=== PATIENT | male | born 1950 | race Two or more races ===

== ENCOUNTER 2019-11-27 16:24 | Inpatient (IN) | payer MEDICARE ==
[~2019-11-27] VITALS: Ht 177.8 cm; Wt 81.3 kg
[2019-11-27] MEDS ORDERED: ACCU-CHEK COMFORT CURVE STRIP VI ONE (17:30)
[2019-11-27 17:49] LABS: Basophils # (auto) 0.1 10 ^3/uL (0-0.2); Basophils % (auto) 1.2 % (0.0-2.0); Eosinophils # (auto) 0.2 10 ^3/uL (0-0.8); Eosinophils % (auto) 1.6 % (0.0-7.0); Hematocrit 41.8 % (41.0-53.0); Hemoglobin 13.7 g/dL (13.5-17.5); Lymphocytes # (auto) 2.7 10 ^3/uL (0.4-5.4); Lymphocytes % (auto) 23.1 % (10.0-50.0); Mean Corpuscular Hemoglobin 30.4 pg (28.0-32.0); Mean Corpuscular Hgb Conc. 32.8 g/dL (32.0-36.0); Mean Corpuscular Volume 92.8 fL (80.0-100.0); Monocytes # (auto) 0.8 10 ^3/uL (0-1.3); Neutrophils # (auto) 7.8 10 ^3/uL (1.6-8.6); Neutrophils % (auto) 67.1 % (37.0-80.0); Nucleated Red Blood Cells % 0.1 %; Platelet Count (auto) 300 10^3/uL (140-450); Red Blood Cells 4.51 10^6/uL (4.5-5.90); Red Cell Distribution Width 12.9 % (11.8-14.3); White Blood Cell 11.6 10^3/uL (4.4-10.8)
[2019-11-27 18:05] LABS: Potassium 3.7 mmol/L (3.5-5.1)
[2019-11-27 18:12] LABS: Albumin 2.8 g/dL (3.4-5.0); BUN/Creatinine Ratio 17.5; Bilirubin, Total 0.7 mg/dL (0.2-1.0); Calcium 8.6 mg/dL (8.5-10.1); Total Protein 7.2 g/dL (6.4-8.2)
[2019-11-27] MEDS ORDERED: cloNIDine HCL 0.1 MG TAB PO ONE (18:45)
[2019-11-27 19:11] LABS: Urine Bacteria NONE SEEN /hpf (None Seen); Urine Blood 1+ /uL (Negative); Urine Mucus FEW (None Seen); Urine Specific Gravity 1.015 (1.001-1.035); Urine WBC 2 /hpf (0 - 3)
[2019-11-27 19:25] LABS: Amphetamine Screen, Urine NEGATIVE (NEGATIVE); Barbiturate Scree,Urine NEGATIVE (NEGATIVE); Benzodiazephine Screen, Urine NEGATIVE (NEGATIVE); Cannabinoid Screen, Urine NEGATIVE (NEGATIVE); Cocaine Screen, Urine NEGATIVE (NEGATIVE); Opiate Scree,Urine NEGATIVE (NEGATIVE); Phencyclidine Screen, Urine NEGATIVE (NEGATIVE)
[2019-11-27] MEDS ORDERED: MORPHINE SULF INJ 2 MG/ML SYRINGE 1ML IV PRN ×2 (19:45)
[2019-11-27] MEDS ORDERED: ISOSORBIDE MONONITRATE ER 60 MG TAB PO ONE (19:45)
[2019-11-27] MEDS ORDERED: DEXTROSE (50%) 50ML SYRG IV PRN (19:45)
[2019-11-27] MEDS ORDERED: ONDANSETRON HCL 4 MG/2 ML VIAL IV PRN (19:45)
[2019-11-27] MEDS ORDERED: ACETAMINOPHEN 500 MG TAB PO PRN (19:45)
[2019-11-27] MEDS ORDERED: HYDROcodone-ACET 5/325MG TAB PO PRN (19:45)
[2019-11-27] MEDS ORDERED: NITROGLYCERIN 0.4 MG SL TAB SL PRN (19:45)
[2019-11-27] MEDS ORDERED: amLODIPine BESYLATE 5 MG TAB PO ONE (19:45)
[2019-11-27 22:00] VITALS: BP 153/83
--- NOTE | 2019-11-27 22:00 | NUR ---
Telemetry admit from ER RHONDA BAXTER admitted to Telemetry unit. Patient oriented to Umu CareyRN primary RN, unit, room, bed, and unit policies regarding patient care and visiting hours. Patient now on continuous telemetry monitoring, tele box #82 and telemetry reading on arrival to unit is SINUS RYANN IN THE 40'S. AAOX4, ON ROOM AIR AND AMBULATORY. Patient weighed by bed scale and encouraged to call if they need something. All questions and concerns addressed, patient verbalized understanding. BED IN LOWEST LOCKED POSITION, SIDE RAILS UP X2, CALL LIGHT WITHIN REACH. WILL CONTINUE TO MONITOR EVERY HOUR AND NEEDED.
[2019-11-27 22:15] VITALS: BP 153/83
[2019-11-27] MEDS: ACCU-CHEK COMFORT CURVE STRIP VI SCH (22:35)
[2019-11-27] MEDS: InsuLIN REG 1unit/0.01ml Soln (100units/ml) SC SCH (22:36)
[2019-11-28] MEDS ORDERED: ATOR80TA PO (00:09)
[2019-11-28] MEDS ORDERED: LOSA50TA26 PO (00:09)
[2019-11-28] MEDS ORDERED: INSDRIP IV (00:09)
[2019-11-28] MEDS ORDERED: ATEN50TA PO (00:09)
[2019-11-28] MEDS ORDERED: ASPI-404 PO (00:09)
[2019-11-28 05:00] VITALS: BP 154/76
[2019-11-28] MEDS: ACCU-CHEK COMFORT CURVE STRIP VI SCH ×4 (06:44→22:00)
[2019-11-28] MEDS: InsuLIN REG 1unit/0.01ml Soln (100units/ml) SC SCH ×4 (06:45→22:29)
[2019-11-28 08:41] LABS: Potassium 3.7 mmol/L (3.5-5.1)
[2019-11-28 09:00] LABS: Albumin 2.4 g/dL (3.4-5.0); BUN/Creatinine Ratio 17.1; Calcium 8.2 mg/dL (8.5-10.1)
[2019-11-28 09:03] LABS: Bilirubin, Total 0.6 mg/dL (0.2-1.0); Total Protein 5.7 g/dL (6.4-8.2)
[2019-11-28] MEDS: FAMOTIDINE 20 MG TAB PO SCH (09:09)
[2019-11-28] MEDS: hydrALAZINE HCL 20 MG/ML VL IV PRN (09:09)
[2019-11-28 09:10] VITALS: BP 136/86
[2019-11-28] MEDS: ISOSORBIDE MONONITRATE ER 60 MG TAB PO SCH (09:10)
[2019-11-28] MEDS: amLODIPine BESYLATE 5 MG TAB PO SCH ×2 (10:00→11:14)
[2019-11-28 10:32] LABS: Basophils # (auto) 0.1 10 ^3/uL (0-0.2); Basophils % (auto) 1.3 % (0.0-2.0); Eosinophils # (auto) 0.2 10 ^3/uL (0-0.8); Hematocrit 35.8 % (41.0-53.0); Hemoglobin 12.2 g/dL (13.5-17.5); Lymphocytes # (auto) 1.8 10 ^3/uL (0.4-5.4); Lymphocytes % (auto) 19.5 % (10.0-50.0); Mean Corpuscular Hemoglobin 31.3 pg (28.0-32.0); Mean Corpuscular Volume 92.2 fL (80.0-100.0); Monocytes # (auto) 0.6 10 ^3/uL (0-1.3); Monocytes % (auto) 6.9 % (0.0-12.0); Neutrophils # (auto) 6.6 10 ^3/uL (1.6-8.6); Neutrophils % (auto) 70.3 % (37.0-80.0); Nucleated Red Blood Cells % 0.1 %; Platelet Count (auto) 261 10^3/uL (140-450); Red Blood Cells 3.89 10^6/uL (4.5-5.90); Red Cell Distribution Width 13.1 % (11.8-14.3); White Blood Cell 9.4 10^3/uL (4.4-10.8)
[2019-11-28 10:39] VITALS: BP 149/87
[2019-11-28 13:00] VITALS: BP 168/85
[2019-11-28] MEDS ORDERED: LOSARTAN POTASSIUM 25 MG TAB PO ONE (13:30)
[2019-11-28] MEDS ORDERED: LORazepam 2MG/ML-1ML VIAL IV PRN (13:30)
[2019-11-28] MEDS ORDERED: ASPirin-EC 81 mg tab PO ONE (13:45)
[2019-11-28 17:00] VITALS: BP 153/75
[2019-11-28 22:09] VITALS: BP 155/88
[2019-11-28] MEDS: ATORVASTATIN 20 MG TAB PO SCH (22:26)
[2019-11-28] MEDS: INSULIN LANTUS (GLARGINE) 1 /0.01ml (100units/ml) SC SCH (22:30)
[2019-11-29] MEDS: hydrALAZINE HCL 20 MG/ML VL IV PRN ×2 (05:24→22:47)
[2019-11-29 05:30] VITALS: BP 166/82
[2019-11-29] MEDS: InsuLIN REG 1unit/0.01ml Soln (100units/ml) SC SCH ×5 (06:34→22:56)
[2019-11-29] MEDS: ACCU-CHEK COMFORT CURVE STRIP VI SCH ×6 (06:34→22:35)
[2019-11-29 06:37] LABS: Potassium 3.7 mmol/L (3.5-5.1)
[2019-11-29 06:47] LABS: BUN/Creatinine Ratio 18.5; Calcium 8.4 mg/dL (8.5-10.1)
--- NOTE | 2019-11-29 07:33 | NUR ---
Opening Shift Note Assumed care of patient from noc shift rn, awake and alert. No S/S of distress/SOB, denies pain at this time. Plan of care discussed, advised to call for assist PRN, will continue to monitor for changes Q1hr and PRN.
[2019-11-29 09:00] VITALS: BP 145/73
[2019-11-29] MEDS: ISOSORBIDE MONONITRATE ER 60 MG TAB PO SCH (09:27)
[2019-11-29] MEDS: FAMOTIDINE 20 MG TAB PO SCH (09:28)
[2019-11-29] MEDS: ASPirin-EC 81 mg tab PO SCH (09:28)
[2019-11-29] MEDS: amLODIPine BESYLATE 5 MG TAB PO SCH (09:29)
[2019-11-29] MEDS ORDERED: LOSARTAN POTASSIUM 25 MG TAB PO SCH (10:00)
--- NOTE | 2019-11-29 11:50 | NUR ---
Called and informed pharmacist Mireya Waldrop that Accucheck/Insulin for 1130 schedule is not showing in eMar.
[2019-11-29 13:00] VITALS: BP 140/76
[2019-11-29 16:24] LABS: Phosphorus 3.8 mg/dL (2.5-4.90)
[2019-11-29 17:10] VITALS: BP 133/74
[2019-11-29] MEDS: SODIUM BICARBONATE 650 MG TAB PO SCH ×2 (18:24→22:47)
[2019-11-29 22:00] VITALS: BP 155/80
[2019-11-29] MEDS: ATORVASTATIN 20 MG TAB PO SCH (22:47)
[2019-11-29] MEDS: INSULIN LANTUS (GLARGINE) 1 /0.01ml (100units/ml) SC SCH (22:56)
[2019-11-30 05:57] VITALS: BP 142/73
[2019-11-30] MEDS: SODIUM BICARBONATE 650 MG TAB PO SCH ×4 (06:01→22:15)
[2019-11-30] MEDS: InsuLIN REG 1unit/0.01ml Soln (100units/ml) SC SCH ×4 (07:00→22:20)
[2019-11-30] MEDS: ACCU-CHEK COMFORT CURVE STRIP VI SCH ×4 (07:00→22:20)
--- NOTE | 2019-11-30 07:30 | NUR ---
Opening Shift Note Assuming care of patient at this time. Patient is awake and alert. Patient denies pain. Instructed patient on the plan of care for today and to call for assistance as needed. Bed is locked and lowered with side rails up x2. Call light within reach. Will continue to round hourly and as needed.
[2019-11-30 07:59] LABS: Calcium 7.9 mg/dL (8.5-10.1); Potassium 3.7 mmol/L (3.5-5.1)
[2019-11-30 09:10] VITALS: BP 144/78
[2019-11-30] MEDS: FAMOTIDINE 20 MG TAB PO SCH (09:53)
[2019-11-30] MEDS: amLODIPine BESYLATE 5 MG TAB PO SCH (09:54)
[2019-11-30] MEDS: ISOSORBIDE MONONITRATE ER 60 MG TAB PO SCH (09:54)
[2019-11-30] MEDS: ASPirin-EC 81 mg tab PO SCH (09:54)
[2019-11-30] MEDS ORDERED: LOSARTAN POTASSIUM 25 MG TAB PO SCH (10:00)
[2019-11-30 11:24] LABS: Urine Bacteria NONE SEEN /hpf (None Seen); Urine Blood TRACE /uL (Negative); Urine Hyaline Cast FEW /lpf (0 - 2); Urine Specific Gravity 1.015 (1.001-1.035); Urine WBC 2 /hpf (0 - 3)
[2019-11-30 11:54] LABS: Protein, Urine 489.5 mg/dL (0.0-11.9)
[2019-11-30] MEDS ORDERED: CHOLECALCIFEROL (VITD3) 1,000IU=25mCg TAB PO ONE (12:45)
[2019-11-30 13:00] VITALS: BP 156/79
[2019-11-30] MEDS: hydrALAZINE HCL 10 MG TAB PO SCH ×2 (14:25→22:16)
[2019-11-30 17:09] VITALS: BP 142/76
--- NOTE | 2019-11-30 18:49 | NUR ---
Closing Shift Note Patient resting in bed. No distress noted. Will endorse care to the coffee roaster RN.
[2019-11-30 20:00] VITALS: BP 149/77
[2019-11-30 22:00] VITALS: BP 149/77
[2019-11-30] MEDS: ATORVASTATIN 20 MG TAB PO SCH (22:16)
[2019-11-30] MEDS: INSULIN LANTUS (GLARGINE) 1 /0.01ml (100units/ml) SC SCH (22:20)
[2019-12-01 05:00] VITALS: BP 156/78
[2019-12-01 05:31] LABS: Basophils # (auto) 0.1 10 ^3/uL (0-0.2); Basophils % (auto) 0.7 % (0.0-2.0); Eosinophils # (auto) 0.3 10 ^3/uL (0-0.8); Eosinophils % (auto) 2.3 % (0.0-7.0); Hematocrit 34.6 % (41.0-53.0); Hemoglobin 11.6 g/dL (13.5-17.5); Lymphocytes # (auto) 2.8 10 ^3/uL (0.4-5.4); Lymphocytes % (auto) 25.2 % (10.0-50.0); Mean Corpuscular Hemoglobin 30.8 pg (28.0-32.0); Mean Corpuscular Hgb Conc. 33.5 g/dL (32.0-36.0); Mean Corpuscular Volume 92.2 fL (80.0-100.0); Monocytes % (auto) 8.8 % (0.0-12.0); Neutrophils # (auto) 6.9 10 ^3/uL (1.6-8.6); Nucleated Red Blood Cells % 0.1 %; Platelet Count (auto) 280 10^3/uL (140-450); Red Blood Cells 3.76 10^6/uL (4.5-5.90); Red Cell Distribution Width 13.1 % (11.8-14.3)
[2019-12-01 05:54] LABS: BUN/Creatinine Ratio 18.7; Calcium 7.9 mg/dL (8.5-10.1)
[2019-12-01] MEDS: hydrALAZINE HCL 10 MG TAB PO SCH ×3 (06:08→21:46)
[2019-12-01] MEDS: SODIUM BICARBONATE 650 MG TAB PO SCH ×4 (06:08→21:49)
[2019-12-01] MEDS: ACCU-CHEK COMFORT CURVE STRIP VI SCH ×4 (06:09→21:44)
[2019-12-01] MEDS: InsuLIN REG 1unit/0.01ml Soln (100units/ml) SC SCH ×4 (06:09→21:45)
[2019-12-01 09:00] VITALS: BP 150/76
[2019-12-01] MEDS: ASPirin-EC 81 mg tab PO SCH (09:36)
[2019-12-01] MEDS: CHOLECALCIFEROL (VITD3) 1,000IU=25mCg TAB PO SCH (09:37)
[2019-12-01] MEDS: amLODIPine BESYLATE 5 MG TAB PO SCH (09:38)
[2019-12-01] MEDS: FAMOTIDINE 20 MG TAB PO SCH (09:38)
[2019-12-01] MEDS: ISOSORBIDE MONONITRATE ER 60 MG TAB PO SCH (09:39)
[2019-12-01 13:00] VITALS: BP 157/79
[2019-12-01 16:39] VITALS: BP 140/79
[2019-12-01] MEDS: MECLIZINE HCL 25 MG TAB PO SCH (17:34)
--- NOTE | 2019-12-01 19:22 | NUR ---
Closing Shift Note Patient resting in bed. No distress noted. Report given. Will endorse care to the shift production associate RN.
--- NOTE | 2019-12-01 19:37 | NUR ---
Opening Shift Note Assumed care of patient, awake and alert. No S/S of distress/SOB or pain. Patient's walker at the bedside. Safety measures in place bed in lowest position, side rails x2 up, and call light within reach. Instructed on POC and to call for assist PRN, will continue to monitor for changes Q1hr and PRN.
--- NOTE | 2019-12-01 20:00 | NUR ---
Educated patient that IV should be discontinued since 72 hours has passed since insertion. Educated patient on risk and benefits. Patient verbalized understanding. Patient refused new IV; patient stated "It's still working, I don't want a new one". Will continue to monitor.
[2019-12-01] MEDS: INSULIN LANTUS (GLARGINE) 1 /0.01ml (100units/ml) SC SCH (21:45)
[2019-12-01] MEDS: ATORVASTATIN 20 MG TAB PO SCH (21:46)
[2019-12-01 22:00] VITALS: BP 137/67
[2019-12-02 05:19] VITALS: BP 159/83
[2019-12-02 05:44] LABS: Basophils # (auto) 0.1 10 ^3/uL (0-0.2); Eosinophils # (auto) 0.3 10 ^3/uL (0-0.8); Eosinophils % (auto) 2.5 % (0.0-7.0); Hematocrit 33.8 % (41.0-53.0); Hemoglobin 11.6 g/dL (13.5-17.5); Lymphocytes # (auto) 2.7 10 ^3/uL (0.4-5.4); Lymphocytes % (auto) 24.3 % (10.0-50.0); Mean Corpuscular Hemoglobin 31.7 pg (28.0-32.0); Mean Corpuscular Hgb Conc. 34.3 g/dL (32.0-36.0); Mean Corpuscular Volume 92.3 fL (80.0-100.0); Monocytes # (auto) 0.9 10 ^3/uL (0-1.3); Monocytes % (auto) 8.4 % (0.0-12.0); Neutrophils % (auto) 63.8 % (37.0-80.0); Nucleated Red Blood Cells % 0.1 %; Platelet Count (auto) 260 10^3/uL (140-450); Red Blood Cells 3.66 10^6/uL (4.5-5.90)
[2019-12-02] MEDS: hydrALAZINE HCL 10 MG TAB PO SCH ×3 (05:44→22:00)
[2019-12-02] MEDS: SODIUM BICARBONATE 650 MG TAB PO SCH ×2 (05:44→11:42)
[2019-12-02 06:03] LABS: BUN/Creatinine Ratio 17.5; Calcium 8.1 mg/dL (8.5-10.1); Potassium 4.1 mmol/L (3.5-5.1)
--- NOTE | 2019-12-02 06:23 | NUR ---
Patient refusing accucheck. Educated patient on risk and benefits. Patient verbalized understanding. Patient continued to refuse. Will notify radha RN.
[2019-12-02] MEDS: InsuLIN REG 1unit/0.01ml Soln (100units/ml) SC SCH ×4 (06:26→22:15)
[2019-12-02] MEDS: ACCU-CHEK COMFORT CURVE STRIP VI SCH ×4 (06:26→22:00)
--- NOTE | 2019-12-02 08:00 | NUR ---
Opening Shift Note Assumed care of patient, awake, alert and oriented. No S/S of distress/SOB or pain. Instructed on POC and to call for assist PRN. Bed locked, in lowest position, call light within reach. Will continue to monitor for changes Q1hr and PRN.
[2019-12-02] MEDS: MECLIZINE HCL 25 MG TAB PO SCH ×2 (08:19→11:43)
[2019-12-02 09:00] VITALS: BP 165/81
[2019-12-02] MEDS: ASPirin-EC 81 mg tab PO SCH (09:52)
[2019-12-02] MEDS: FAMOTIDINE 20 MG TAB PO SCH (09:52)
[2019-12-02] MEDS: ISOSORBIDE MONONITRATE ER 60 MG TAB PO SCH (09:53)
[2019-12-02] MEDS: CHOLECALCIFEROL (VITD3) 1,000IU=25mCg TAB PO SCH (09:54)
[2019-12-02] MEDS: amLODIPine BESYLATE 5 MG TAB PO SCH (09:54)
[2019-12-02] MEDS: hydrALAZINE HCL 20 MG/ML VL IV PRN (11:42)
[2019-12-02 13:00] VITALS: BP 143/72
[2019-12-02] MEDS ORDERED: MECLIZINE HCL 25 MG TAB PO PRN (13:15)
[2019-12-02 17:00] VITALS: BP 113/71
--- NOTE | 2019-12-02 19:03 | NUR ---
REPORT GIVEN TO NIGHT NURSE.
--- NOTE | 2019-12-02 19:25 | NUR ---
Opening Shift Note Assumed care of patient, awake and alert. No S/S of distress/SOB or pain. Safety measures in place bed in lowest position, side rails x2 up, and call light within reach. Instructed on POC and to call for assist PRN, will continue to monitor for changes Q1hr and PRN.
[2019-12-02 22:00] VITALS: BP 154/77
[2019-12-02] MEDS ORDERED: ATORVASTATIN 20 MG TAB PO SCH (22:00)
[2019-12-02] MEDS ORDERED: SODIUM BICARBONATE 650 MG TAB PO SCH (22:00)
[2019-12-02] MEDS: INSULIN LANTUS (GLARGINE) 1 /0.01ml (100units/ml) SC SCH (22:06)
[2019-12-03 03:11] LABS: Immunoglobulin G, Serum 670 mg/dL (603-1613)
[2019-12-03 05:00] VITALS: BP 151/77
[2019-12-03] MEDS: hydrALAZINE HCL 10 MG TAB PO SCH ×2 (06:13→14:00)
[2019-12-03] MEDS: InsuLIN REG 1unit/0.01ml Soln (100units/ml) SC SCH ×2 (06:15→11:30)
[2019-12-03] MEDS: ACCU-CHEK COMFORT CURVE STRIP VI SCH ×2 (06:15→12:19)
--- NOTE | 2019-12-03 07:00 | NUR ---
Opening Shift Note Received report on the patient. Awake lying in bed. Patient shows no signs of distress at this time. Discussed the plan of care with the patient. Bed in lowest position, side rails up x2, and the call light is within reach. Will continue to monitor.
[2019-12-03 08:00] VITALS: BP 151/77
[2019-12-03 09:00] VITALS: BP 146/79
[2019-12-03] MEDS: ASPirin-EC 81 mg tab PO SCH (09:59)
[2019-12-03] MEDS: ISOSORBIDE MONONITRATE ER 60 MG TAB PO SCH (09:59)
[2019-12-03] MEDS: CHOLECALCIFEROL (VITD3) 1,000IU=25mCg TAB PO SCH (10:00)
[2019-12-03] MEDS: FAMOTIDINE 20 MG TAB PO SCH (10:00)
[2019-12-03] MEDS ORDERED: SODIUM BICARBONATE 650 MG TAB PO SCH (10:00)
[2019-12-03] MEDS: amLODIPine BESYLATE 5 MG TAB PO SCH (10:00)
[2019-12-03 10:01] LABS: Hepatitis B Surface Antigen Negative (Negative)
[2019-12-03 10:11] LABS: Hepatitis B Core IgM Negative
[2019-12-03 11:35] LABS: BUN/Creatinine Ratio 17.6; Calcium 8.3 mg/dL (8.5-10.1); Potassium 4.4 mmol/L (3.5-5.1)
[2019-12-03 13:00] VITALS: BP 141/73
[2019-12-03 13:25] VITALS: BP 141/73
--- NOTE | 2019-12-03 15:24 | NUR ---
Discharge instructions given as ordered. Encourage to follow up with PMD as instructed. All questions and concerns addressed. Patient verbalized understanding. Medication reconciliation form completed and copy given to patient. Home medications held in Pharmacy returned to patient. IV removed with catheter intact, pressure dressing applied. Telemetry unit returned to ICU. Patient taken to vehicle via wheelchair with all personal belongings, accompanied by staff and family member. No distress noted at time of departure.
== END 2019-12-03 15:22 | disposition home or self-care (01) | DRG 304 ==
LOC: ER 16:24 → TELE 16:25 → TELE-WESTW 21:55
PROVIDERS: ADMIT Nurse Practitioner Acute Care; ATTEND Internal Medicine
DX: I16.1 Hypertensive emergency (principal); N17.0 Acute kidney failure with tubular necrosis; E87.2 Acidosis; R55 Syncope and collapse; R20.0 Anesthesia of skin; E11.65 Type 2 diabetes mellitus with hyperglycemia; N18.3 Chronic kidney disease, stage 3 (moderate); N28.1 Cyst of kidney, acquired; R29.6 Repeated falls; R81 Glycosuria; R00.1 Bradycardia, unspecified; E11.22 Type 2 diabetes mellitus with diabetic chronic kidney disease; E78.5 Hyperlipidemia, unspecified; I12.9 Hypertensive chronic kidney disease with stage 1 through stage 4 chronic kidney disease, or unspecified chronic kidney disease; Z79.84 Long term (current) use of oral hypoglycemic drugs; Z79.899 Other long term (current) drug therapy; Z83.3 Family history of diabetes mellitus; Z91.19 Patient's noncompliance with other medical treatment and regimen; Z91.14 Patient's other noncompliance with medication regimen; Z91.81 History of falling
CPT/HCPCS: 36415; 70450; 71045; 76775; 80048; 80053; 80061; 80307; 81001; 82043; 82306; 82570; 82784; 82962; 83036; 83516; 83735; 83880; 83883; 83970; 84100; 84155; 84156; 84165; 84166; 84300; 84443; 84484; 85025; 85652; 86225; 86235; 86334; 86335; 86703; 86705; 86803; 87081; 87340; 93005; 93306; 93886; 97116; 97163; 97530; G0378; J1815

== ENCOUNTER → 2019-12-20 | Outpatient (CLI) | payer MEDICARE ==
[~2019-12-20] MED LIST: ASPI-404 PO; ATEN50TA PO; ATOR80TA PO; INSDRIP IV; LOSA50TA26 PO
[2019-12-20 11:22] LABS: BUN/Creatinine Ratio 12.2; Calcium 8.3 mg/dL (8.5-10.1); Magnesium 2.5 mg/dL (1.6-2.6); Phosphorus 3.4 mg/dL (2.5-4.90); Potassium 3.4 mmol/L (3.5-5.1)
== END | disposition home or self-care (01) ==
LOC: LAB 10:44
PROVIDERS: ATTEND Internal Medicine Nephrology
DX: I12.9 Hypertensive chronic kidney disease with stage 1 through stage 4 chronic kidney disease, or unspecified chronic kidney disease (principal); N18.4 Chronic kidney disease, stage 4 (severe)
CPT/HCPCS: 36415; 80048; 83735; 84100

== ENCOUNTER 2020-01-09 12:18 | Inpatient (IN) | payer MEDICARE ==
[~2020-01-09] VITALS: Ht 177.8 cm; Wt 72.5 kg
[2020-01-09] MEDS ORDERED: SODIUM CHLORIDE 0.9% 1,000 ML IV ONE (12:40)
[2020-01-09 13:09] LABS: Basophils # (auto) 0.1 10 ^3/uL (0-0.2); Basophils % (auto) 0.9 % (0.0-2.0); Eosinophils # (auto) 0.1 10 ^3/uL (0-0.8); Eosinophils % (auto) 0.7 % (0.0-7.0); Hematocrit 28.4 % (41.0-53.0); Hemoglobin 9.5 g/dL (13.5-17.5); Lymphocytes # (auto) 1.2 10 ^3/uL (0.4-5.4); Lymphocytes % (auto) 8.3 % (10.0-50.0); Mean Corpuscular Hemoglobin 30.6 pg (28.0-32.0); Mean Corpuscular Hgb Conc. 33.5 g/dL (32.0-36.0); Mean Corpuscular Volume 91.4 fL (80.0-100.0); Monocytes # (auto) 1.4 10 ^3/uL (0-1.3); Monocytes % (auto) 9.4 % (0.0-12.0); Neutrophils # (auto) 11.6 10 ^3/uL (1.6-8.6); Neutrophils % (auto) 80.7 % (37.0-80.0); Platelet Count (auto) 346 10^3/uL (140-450); Red Blood Cells 3.11 10^6/uL (4.5-5.90); Red Cell Distribution Width 13.6 % (11.8-14.3); White Blood Cell 14.4 10^3/uL (4.4-10.8)
[2020-01-09 13:26] LABS: Albumin 2.8 g/dL (3.4-5.0); Anion Gap 8 (5-15); Blood Urea Nitrogen 39 mg/dL (7-18); Calcium 8.3 mg/dL (8.5-10.1); Carbon Dioxide 24 mmol/L (21-32); Chloride 105 mmol/L (98-107); Glucose 159 mg/dL (74-106); Potassium 3.9 mmol/L (3.5-5.1); Sodium 137 mmol/L (136-145)
[2020-01-09 13:32] LABS: Alanine Aminotransferase 15 U/L (16-61); Alkaline Phosphatase 111 U/L (45-117); Aspartate Aminotransferase 19 U/L (15-37); BUN/Creatinine Ratio 17.6; Bilirubin, Total 1.4 mg/dL (0.2-1.0); GFR African American 38 mL/min; GFR Non-African American 32 mL/min
[2020-01-09] MEDS ORDERED: cefTRIAXone 1GM/50ML D5W 50 ML IV ONE ×2 (15:00→17:00)
[2020-01-09] MEDS ORDERED: SODIUM CHLORIDE 0.9% 2,100 ML IV ONE (15:00)
--- NOTE | 2020-01-09 16:15 | NUR ---
admit from ER RHONDA BAXTER admitted to Telemetry unit after SBAR received. Patient oriented to Caterina Schneider, primary RN, unit, room, bed, and unit policies regarding patient care and visiting hours. Patient placed on bedside oxygen, weighed by bedscale and encouraged to call if they need something. All questions and concerns addressed, patient verbalized understanding. Note:
--- NOTE | 2020-01-09 16:50 | NUR ---
PAGED DR MARR PT HAS NO ACTIVE MEDICATIONS AND PT IS COMPLAINING OF PAIN.
[2020-01-09] MEDS ORDERED: NITROGLYCERIN 0.4 MG SL TAB SL PRN (17:00)
[2020-01-09] MEDS ORDERED: traMADol HCL 50 MG TAB PO PRN (17:00)
[2020-01-09] MEDS ORDERED: TEMAZEPAM 15 MG CAP PO PRN (17:00)
[2020-01-09] MEDS: InsuLIN REG 1unit/0.01ml Soln (100units/ml) SC SCH ×2 (17:00→22:00)
[2020-01-09] MEDS ORDERED: PROMETHAZINE HCL 25 MG/ML 1ML IV PRN (17:00)
[2020-01-09] MEDS ORDERED: DEXTROSE (50%) 50ML SYRG IV PRN (17:00)
[2020-01-09] MEDS ORDERED: MORPHINE SULF INJ 2 MG/ML SYRINGE 1ML IV PRN ×2 (17:00)
[2020-01-09 17:02] VITALS: BP 142/74
--- NOTE | 2020-01-09 17:30 | NUR ---
PT REFUSED PAIN MEDICATION. PT WAS INFORMED THAT AN ORDER FOR PAIN MEDICATION HAS BEEN OBTAINED. PT STATED HE HAS PAIN BUT DOESN'T WANT TO TAKE ANY PAIN MEDICATION. PAIN IS PRESENT ON ADL'S, BUT NONE IF IMMOBILE.
[2020-01-09 17:47] LABS: Urine Bacteria FEW /hpf (None Seen); Urine Blood Negative /uL (Negative); Urine Hyaline Cast FEW /lpf (0 - 2); Urine Specific Gravity 1.011 (1.001-1.035); Urine WBC 2 /hpf (0 - 3)
[2020-01-09 17:55] LABS: Hemoglobin 8.9 g/dL (13.5-17.5)
--- NOTE | 2020-01-09 18:13 | NUR ---
VTE Risk Spoke to Dr. Phelan regarding patient's VTE risk score of 2. SCD's were ordered. Signed: 01/09/20 at 1813 by CLIFF PENA SN <Co-Signature Required> Co-Signed: 01/09/20 at 1813 by Caterina Schneider RN
[2020-01-09] MEDS: ACCU-CHEK COMFORT CURVE STRIP VI SCH ×2 (18:18→22:55)
[2020-01-09] MEDS: SODIUM CHLORIDE 0.9% 1,000 ML IV SCH (18:19)
--- NOTE | 2020-01-09 19:29 | NUR ---
REPORT GIVEN TO RN. PT RESTING IN BED. STILL REFUSES PAIN MEDS.
[2020-01-09 22:00] VITALS: BP 151/74
[2020-01-09] MEDS: PANTOPRAZOLE 40 MG TAB PO SCH (22:53)
[2020-01-10 00:49] LABS: Hematocrit 26.2 % (41.0-53.0); Hemoglobin 8.9 g/dL (13.5-17.5)
[2020-01-10] MEDS: SODIUM CHLORIDE 0.9% 1,000 ML IV SCH ×2 (03:34→17:00)
[2020-01-10 05:00] VITALS: BP 155/80
[2020-01-10] MEDS: ACCU-CHEK COMFORT CURVE STRIP VI SCH ×4 (06:48→21:26)
[2020-01-10] MEDS: InsuLIN REG 1unit/0.01ml Soln (100units/ml) SC SCH ×4 (06:49→22:56)
[2020-01-10 07:05] LABS: Basophils # (auto) 0.1 10 ^3/uL (0-0.2); Basophils % (auto) 0.8 % (0.0-2.0); Eosinophils # (auto) 0 10 ^3/uL (0-0.8); Eosinophils % (auto) 0.2 % (0.0-7.0); Hematocrit 27.6 % (41.0-53.0); Hemoglobin 9.3 g/dL (13.5-17.5); Lymphocytes # (auto) 0.9 10 ^3/uL (0.4-5.4); Lymphocytes % (auto) 6.8 % (10.0-50.0); Mean Corpuscular Hemoglobin 30.8 pg (28.0-32.0); Mean Corpuscular Hgb Conc. 33.8 g/dL (32.0-36.0); Monocytes # (auto) 1.1 10 ^3/uL (0-1.3); Neutrophils # (auto) 11.6 10 ^3/uL (1.6-8.6); Neutrophils % (auto) 84.2 % (37.0-80.0); Platelet Count (auto) 343 10^3/uL (140-450); Red Blood Cells 3.03 10^6/uL (4.5-5.90); Red Cell Distribution Width 13.9 % (11.8-14.3); White Blood Cell 13.7 10^3/uL (4.4-10.8)
[2020-01-10 07:23] LABS: Albumin 2.4 g/dL (3.4-5.0); Calcium 7.8 mg/dL (8.5-10.1); Potassium 3.6 mmol/L (3.5-5.1)
[2020-01-10 07:28] LABS: BUN/Creatinine Ratio 19.3; Total Protein 6.4 g/dL (6.4-8.2)
--- NOTE | 2020-01-10 07:30 | NUR ---
Opening Shift Note Assumed care of patient, ASLEEP. No S/S of distress/SOB or pain. Will continue to monitor for changes Q1hr and PRN.
[2020-01-10] MEDS: PANTOPRAZOLE 40 MG TAB PO SCH ×2 (08:43→21:25)
[2020-01-10] MEDS: cefTRIAXone 1GM/50ML D5W 50 ML IV SCH (08:43)
--- NOTE | 2020-01-10 09:00 | NUR ---
PT NOTES PT AWAKE, AOX4. PT STATED GENERALIZED PAIN AND WEAKNESS BUT REFUSES PAIN MEDICATION. PATIENT HAD WET HIMSELF. SKIN ASSESSED DURING CLEAN UP. NO SKIN ISSUES NOTED EXCEPT FOR BLANCHABLE REDNESS ON SACRUM AND BUTTOCKS. ZGUARD APPLIED LIBERALLY ON PT'S BUTTOCKS AREA. PT WAS ABLE TO ASSIST WITH TURNING DURING CLEAN UP AND LINEN CHANGE BY GRABBING AND PULLING ON THE HANDRAILS. TOLERATED ACTIVITY WELL.
--- NOTE | 2020-01-10 12:12 | NUR ---
Consult wt loss poor appetite When medically feasible consider CCHO 60g, Renal Specific 50g diet if DANIELE not resolved, consider adding Glucerna BID Est energy needs 4039-3027 kcal (25-30 kcal/kg BW 73.4kg) Est protein needs 44-59g (0.6-0.8g/kg BW 73.4kg r/t DANIELE, consider increasing when RFT improve) Will reassess prn. Addendum: 01/10/20 at [address] Amended: Links added.
--- NOTE | 2020-01-10 12:19 | NUR ---
Patient previously on service with [facility] (I received a message from Lexy at [facility]).
--- NOTE | 2020-01-10 14:00 | NUR ---
PT VERY TIRED TODAY. ATTEMPT P.T. TOMORROW.
--- NOTE | 2020-01-10 16:39 | NUR ---
Rounds Patient awake and alert. No S/S of distress/SOB. PT HAVE GENERALIZED PAIN BUT DOESN'T WANT PAIN MEDICATION. Will continue to monitor changes q1hr and PRN.
--- NOTE | 2020-01-10 17:01 | NUR ---
assessment re: ss consult living situation Patient is a 69 year old male who is sleeping. I called patients daughter Pattie [phone]. Per Pattie prior to admission patient lived home with his son Blake [phone] and functioned with assistance this past month. Patient has a fww for home use. Patient has home health, but Pattie does not know the name of the company. Per Pattie patient came to ER due to increased weakness and patient was admitted. I informed Pattie patients post discharge needs to be determined prior to discharge and after medical work up. Annie verbalized understanding. Addendum: 01/10/20 at 1705 by Solange HENDRICKS Amended: Links added.
--- NOTE | 2020-01-10 18:00 | NUR ---
PT TRANSFERED TO RM 209 PT WAS GETTING UPSET WITH [address] WHILE THAT PT WAS TALKING ON THE PHONE. PT WAS COMPLAINING THAT [address] WAS LOUD AND TOLD HIM TO PUT THE PHONE DOWN COZ HE'S TRYING TO SLEEP. INFORMED JUANA ABOUT PT'S BEHAVIOR.
--- NOTE | 2020-01-10 18:12 | NUR ---
UNABLE TO REACH NEXT OF KIN OR FAMILY TRIED CALLING PT'S LISTED HOME PHONE NUMBER BUT A RECORDING STATED THE NUMBER IS NOT AVAILABLE AND TO CALL BACK LATER. UNABLE TO LEAVE A VOICE MESSAGE EITHER.OF [phone]. I WAS ABLE TO CONTACT PT'S NEIGHBOR/FRIEND LISTED ON PT'S FACE SHEET NAMED MAGDA ODEN AT [phone]. SHE WAS ABLE TO PROVIDE PT'S SON'S PHONE NUMBER. ACCORDING TO MAGDA, PT LIVES WITH HIS SON, ANA MARIA, BUT PT IS THE ONE WHO'S TAKING CARE OF THE SON WHO IS 40 YRS OLD. Addendum: 01/10/20 at 1824 by Caterina Schneider RN MAGDA ALSO PROVIDED PT'S DAUGHTER JAMIL'S PHONE NUMBER. WILL UPDATE CONTACT INFORMATION.
--- NOTE | 2020-01-10 18:25 | NUR ---
DAUGHTER JAMIL -[phone]. SON ANA MARIA [phone] I WAS ABLE TO TALK TO JAMIL AND INFORMED HER OF MD'S PLAN TO DC PT TOMORROW AND ALSO TO ASK HER OF PT'S LIVING ARRANGEMENT. PER JAMIL, PT LIVES WITH HER BROTHER TRISTAN. SHE STATED THAT PT IS STUBBORN AND WOULDN'T EAT OR GET OUT OF BED IF HE DOESN'T WANT TO AND THAT THEY COULD ONLY DO SO MUCH FOR HIM. I ASKED IF SHE WANTS PT TO GO THE A SNF AND SHE STATED THAT IF IT'S UP TO HER SHE WOULD WANT HIM TO, BUT SHE THINKS THAT THE PT WILL REFUSE. Addendum: 01/10/20 at 1837 by Caterina Schneider RN ADDITIONAL NOTES JAMIL IS ALSO MADE AWARE WHY THE PT WAS MOVED TO A DIFFERENT ROOM AND WHY.
--- NOTE | 2020-01-10 20:00 | NUR ---
Opening Shift Note Assumed care of patient. Awake, alert and oriented. No S/S of distress/SOB or pain. Instructed on POC and to call for assist PRN. Bed locked, in lowest position, call light within reach, side rails up x2, bed alarm on. Will continue to monitor for changes Q1hr and PRN.
--- NOTE | 2020-01-10 21:30 | NUR ---
Urine sample obtained Sent to lab
[2020-01-10 22:00] VITALS: BP 158/69
[2020-01-10 23:17] LABS: Urine Amorphous Crystal FEW /hpf (None Seen); Urine Bacteria FEW /hpf (None Seen); Urine Blood Negative /uL (Negative); Urine WBC <1 /hpf (0 - 3)
--- NOTE | 2020-01-11 01:07 | NUR ---
NURSING NOTE Patient said "I have a sore on the bottom of my left foot" Assessed heal of left and right feet and no signs of redness were noted and skin was intact. Propped feet on a folded blanket to take pressure off heals. Will continue to monitor.
[2020-01-11] MEDS: SODIUM CHLORIDE 0.9% 1,000 ML IV SCH ×3 (04:47→16:34)
[2020-01-11 05:00] VITALS: BP 159/80
[2020-01-11] MEDS: InsuLIN REG 1unit/0.01ml Soln (100units/ml) SC SCH ×4 (06:35→23:10)
[2020-01-11] MEDS: ACCU-CHEK COMFORT CURVE STRIP VI SCH ×4 (06:35→23:11)
--- NOTE | 2020-01-11 08:57 | NUR ---
ROUNDING MD Karla ZIMMERMAN AT BEDSIDE. ALL QUESTIONS AND CONCERNS ADDRESSED AT THIS TIME
[2020-01-11 09:00] VITALS: BP 151/68
[2020-01-11] MEDS: PANTOPRAZOLE 40 MG TAB PO SCH ×2 (09:45→23:11)
[2020-01-11] MEDS: cefTRIAXone 1GM/50ML D5W 50 ML IV SCH (09:45)
--- NOTE | 2020-01-11 10:15 | NUR ---
PT REFUSING TO TURN. PT STATES, ALL YOU ARE GOING TO DO IS HURT MY BODY AND I DO NOT WANT TO TURN. WILL ATTEMPT TO TURN LATER
--- NOTE | 2020-01-11 10:22 | NUR ---
SPOKE WITH SON ANA MARIA RE: HOME HEALTH. ACCORDING TO SON PT WAS CURRENTLY WITH [facility]
[2020-01-11 10:25] LABS: Basophils # (auto) 0.1 10 ^3/uL (0-0.2); Basophils % (auto) 0.6 % (0.0-2.0); Eosinophils # (auto) 0.1 10 ^3/uL (0-0.8); Eosinophils % (auto) 0.3 % (0.0-7.0); Hematocrit 25.4 % (41.0-53.0); Hemoglobin 8.6 g/dL (13.5-17.5); Lymphocytes % (auto) 6.4 % (10.0-50.0); Mean Corpuscular Hemoglobin 30.5 pg (28.0-32.0); Mean Corpuscular Hgb Conc. 33.7 g/dL (32.0-36.0); Mean Corpuscular Volume 90.3 fL (80.0-100.0); Monocytes # (auto) 1.3 10 ^3/uL (0-1.3); Monocytes % (auto) 8.1 % (0.0-12.0); Neutrophils % (auto) 84.6 % (37.0-80.0); Platelet Count (auto) 363 10^3/uL (140-450); Red Blood Cells 2.82 10^6/uL (4.5-5.90); Red Cell Distribution Width 13.8 % (11.8-14.3); White Blood Cell 15.4 10^3/uL (4.4-10.8)
[2020-01-11 10:40] LABS: Albumin 2.1 g/dL (3.4-5.0); Calcium 7.6 mg/dL (8.5-10.1); Potassium 3.7 mmol/L (3.5-5.1)
[2020-01-11 10:43] LABS: BUN/Creatinine Ratio 14.3; Bilirubin, Total 0.8 mg/dL (0.2-1.0); Phosphorus 2.6 mg/dL (2.5-4.90); Total Protein 6.2 g/dL (6.4-8.2); Uric Acid 5.8 mg/dL (3.5-7.2)
[2020-01-11] MEDS: ACETAMINOPHEN 500 MG TAB PO PRN ×2 (11:28→17:10)
[2020-01-11 13:00] VITALS: BP 182/90
[2020-01-11 17:00] VITALS: BP 157/87
[2020-01-11 22:00] VITALS: BP 172/94
[2020-01-12 05:00] VITALS: BP 161/80
[2020-01-12] MEDS: SODIUM CHLORIDE 0.9% 1,000 ML IV SCH ×2 (05:28→16:00)
[2020-01-12] MEDS: InsuLIN REG 1unit/0.01ml Soln (100units/ml) SC SCH ×3 (06:25→17:00)
[2020-01-12] MEDS: ACCU-CHEK COMFORT CURVE STRIP VI SCH ×3 (06:26→17:00)
[2020-01-12 08:26] LABS: Albumin 1.9 g/dL (3.4-5.0); Calcium 7.6 mg/dL (8.5-10.1); Potassium 3.3 mmol/L (3.5-5.1)
[2020-01-12 08:30] LABS: BUN/Creatinine Ratio 14.5; Total Protein 6.1 g/dL (6.4-8.2)
[2020-01-12 08:35] VITALS: BP 166/83
--- NOTE | 2020-01-12 08:40 | NUR ---
MD CAMILLA ZIMMERMAN AT BEDSIDE. ORDERS FOR D/C RECEIVED
--- NOTE | 2020-01-12 08:42 | NUR ---
PAGED ON-CALL HOUSEHOLD APPLIANCE ASSEMBLER RE: PENDING DISCHARGE WITH HOME HEALTH. AWAITING CALL BACK
--- NOTE | 2020-01-12 08:45 | NUR ---
CALL PLACED TO [facility] RE: DISCHARGE SPOKE WITH SENIOR ENERGY ANALYST JUAN MANUEL. ACCORDING TO JUAN MANUEL PATIENT IS STILL CURRENTLY ON SERVICE. RN WILL NEED TO FAX D/C ORDER, H&P AND HOME HEALTH ORDER TO FACILITY.
[2020-01-12] MEDS: cefTRIAXone 1GM/50ML D5W 50 ML IV SCH (09:33)
[2020-01-12] MEDS: PANTOPRAZOLE 40 MG TAB PO SCH (09:33)
--- NOTE | 2020-01-12 09:38 | NUR ---
SON ANA MARIA CALLED RE: DISCHARGE ACCORDING TO SON HE IS GOING TO BE UNABLE TO CARE FOR PATIENT AT HOME DUE TO PHYSICAL DISABILITIES. THIS RN WILL UPDATE
--- NOTE | 2020-01-12 09:40 | NUR ---
CALL PLACED TO MD Karla ZIMMERMAN RE: PT FAMILY REQUESTING SNF STATES "I WILL CHANGE THE ORDER"
--- NOTE | 2020-01-12 09:40 | NUR ---
PAGED ON-CALL SS RE: SNF PLACEMENT AWAITING CALL BACK
--- NOTE | 2020-01-12 10:16 | NUR ---
ON-CALL SSW RETURNED PAGE ACCORDING TO GABE RN IS TO FAX INFORMATION TO [facility] AT ([phone])
--- NOTE | 2020-01-12 10:33 | NUR ---
FAXED PAPERWORK TO [facility] ([phone])
--- NOTE | 2020-01-12 10:48 | NUR ---
CALLED MATEUS RODGERS TO UPDATE ON POC
[2020-01-12 12:30] VITALS: BP 147/84
--- NOTE | 2020-01-12 14:23 | NUR ---
ELADIOW RYLIE CALLED BACK. ACCORDING TO RYLIE SSW PATIENT HAS BEEN ACCEPTED TO [facility]([phone]) ROOM 20B BED 2
--- NOTE | 2020-01-12 14:32 | NUR ---
CALLED DEON AT [facility] DEON GIVEN HEIGHT AND WEIGHT OF PATIENT SO SHE MAY SET UP TRANSPORT
--- NOTE | 2020-01-12 14:58 | NUR ---
AVPA PROFESSOR OF EDUCATION DEON CALL BACK PT [facility]
--- NOTE | 2020-01-12 17:00 | NUR ---
CALLED SON TO UPDATE ON PRESCRIPTION SON WOULD LIKE TO PICK PRESCRIPTION UP ON 01/13/2020 AND FILL FOR THE PATIENT SO THAT IT MAY NOT BE LOST IN TRANSPORT. SON UPDATED AND TOLD TO SUPERVISOR DELIVERY DEPARTMENT PRESCRIPTION TOMMORROW AND IT WILL BE AVAILABLE AT THE [facility]ENTRAL NURSE STATION
[2020-01-12 17:22] VITALS: BP 151/78
--- NOTE | 2020-01-12 17:59 | NUR ---
CALL RECEIVED FROM [facility] ACCORDING TO MAGALIS PICK-UP TIME WILL BE MOVED FROM 0 TO 1999
--- NOTE | 2020-01-12 19:30 | NUR ---
Opening Shift Note Assumed care of patient, awake and alert. No S/S of distress/SOB or pain. Insructed on POC and to callfor assist PRN, will continue to monitor for changes Q1hr and PRN. Fall and safety precautions in place. Call light within reach. No IV access at this time per day shift RN, patient to be transferred to SNF
--- NOTE | 2020-01-12 20:18 | NUR ---
DISCHARGE Discharge instructions given as ordered. Encourage to follow up with PMD as instructed. All questions and concerns addressed. Patient verbalized understanding. IV removed with catheter intact by day shift RN, pressure dressing applied. Patient taken to vehicle via gurney with all personal belongings, accompanied by [facility] transport staff. No distress noted at time of departure.
== END 2020-01-12 20:18 | DRG 640 ==
LOC: ER 12:18 → OVERFLOW 12:19 → CENTRAL 16:12
PROVIDERS: ADMIT Internal Medicine; ATTEND Family Medicine
DX: E86.0 Dehydration (principal); N17.0 Acute kidney failure with tubular necrosis; I69.354 Hemiplegia and hemiparesis following cerebral infarction affecting left non-dominant side; E44.1 Mild protein-calorie malnutrition; E86.9 Volume depletion, unspecified; D64.9 Anemia, unspecified; E11.65 Type 2 diabetes mellitus with hyperglycemia; N18.3 Chronic kidney disease, stage 3 (moderate); D72.829 Elevated white blood cell count, unspecified; F32.9 Major depressive disorder, single episode, unspecified; H91.90 Unspecified hearing loss, unspecified ear; I12.9 Hypertensive chronic kidney disease with stage 1 through stage 4 chronic kidney disease, or unspecified chronic kidney disease; E11.22 Type 2 diabetes mellitus with diabetic chronic kidney disease; Z83.3 Family history of diabetes mellitus
CPT/HCPCS: 36415; 70450; 71045; 80053; 81001; 82962; 83036; 84100; 84484; 84550; 85014; 85018; 85025; 85045; 85652; 87081; 87086; 93005; 96361; 96365; G0378; J0696; J1815